=== PATIENT | female | born 1980 | race African-American/Black ===

== ENCOUNTER 2016-08-15 11:58 | Inpatient (IN) | payer OTHER ==
[~2016-08-15] VITALS: Ht 170.2 cm; Wt 121.1 kg
[~2016-08-15 11:58] MED LIST: CIPRO 500MG TA500 MG PO; MASON NATURAL2000 IU PO
--- NOTE | 2016-08-15 13:06 | History & Physical ---
General Information and HPI MD Statement: I have seen and personally examined JIGNESH RITCHIE and documented this H&P. The patient is a 35 year old female at [38] weeks and [3] days gestation who presented with a chief complaint of [ROM CLEAR FLUID]. 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 : 3 Para: 2 Last Menstrual Period: 11/20/2015 Estimated Delivery Date: 09/23/2016 Past raise driller History: none Past Pregnancies Past Pregnancies: 1 Date of Delivery: 02/26/2006 Gestational Age: 40 Length of Labor: 3h Weight: 7# 4oz Type of Delivery: vaginal Anesthesia: epidural Place of Delivery: [facility] Complications: none Past Pregnancies: 2 Date of Delivery: 06/16/2016 Gestational Age: 39 Length of Labor: 6h Weight: 7# 1 oz Type of Delivery: vaginal Anesthesia: epidural Place of Delivery: [facility] Complications: none Surgical History Pertinent Surgical History: none Past Family/Social History Psychosocial History Smoking Status: Never Smoked Review of Systems Review of Systems Constitutional: Reports: no symptoms. Denies: chills, fever. EENTM: Denies: blurred vision, double vision, visual changes. Cardiovascular: Denies: chest pain, edema. Respiratory: Denies: cough, short of breath. GI: Denies: diarrhea, nausea, vomiting. Neurological/Psychological: Denies: anxiety, depressed. Exam & Diagnostic Data Last 24 Hrs of Vital Signs/I&O vss Intake & Output 08/15 1600 02/02 0800 02/ 0000 Intake Total Output Total Balance Patient 267 lb Weight Obstetric Exam Wgt Gained During : 15# Pelvimetry: OK Dilation (cm): 1 Effacement (%): 50 Station: -3 Membranes: SROM Fluid: clear Fundal Height (cm): 40 Multiple Gestation? No Contractions: NO #1 - FHR Baseline: 144 Category: 1 Estimated Weight: 3800G Presentation: BREECH Patient for Induction? No Physical Exam General Appearance Alert, Oriented X3, Cooperative, No Acute Distress Skin No Rashes HEENT Atraumatic Neck Supple Cardiovascular Regular Rate Lungs Clear to Auscultation Abdomen Normal Bowel Sounds, Soft, No Tenderness Neurological Normal Gait, Normal Speech Extremities No Clubbing Labs Blood Type & Rh: A pos Antibody Screen: neg Hct/Hgb & Platelets #1: 39.2/12.2/340 Hct/Hgb & Platelets #2: 33.9/10.3/276 Rubella: imm VDRL #1: nr VDRL #2: nr HbsAg: nrg HIV #1: nr HIV #2 nr 1 Hr P Group B Strep: neg Initial Ultrasound: 01/16/2016 Anatomy Ultrasound: 04/08/2016 normal Ultrasound for EFW: none Genetic Testing: Materni T21 normal MSAFP declined Last 24 Hrs of Labs/José Miguel: Laboratory Tests 08/15/16 1230: CBC w Diff Pending, WBC Pending, RBC Pending, Hgb Pending, Hct Pending, MCV Pending, MCH Pending, RDW Pending, Plt Count Pending, MPV Pending, PUBS MCHC Pending 08/15/16 1205: Urinalysis LIGHT H, Urine Color YEL, Urine Clarity HAZY H, Urine pH 6.0, Ur Specific [place] >= 1.030, Urine Protein TRACE H, Urine Ketones NEG, Urine Nitrite NEG, Urine Bilirubin NEG, Urine Urobilinogen 0.2, Ur Leukocyte Esterase NEG, Ur Microscopic SEDIMENT EXAMINED, Urine RBC 3-5, Urine WBC 1-3 H, Ur Epithelial Cells MOD H, Urine Mucus RARE, Urine Hemoglobin TRACE-INTACT, Urine Glucose NEG Microbiology 08/15 1229 URINE ROUT: Urine Culture - COLB Assessment/Plan Assessment/Plan: Obesity BMI 38 AMA age 35 undesired fertility breech presentation plan primary C/S with tubal ligation As Ranked By This Provider Problem List: 1. Core Measures/Miscellaneous Venous Thromboembolism VTE Risk Factors: Obesity, / VTE Contraindications: No Contraindications VTE Prophylaxis Ordered Inpt: Early Ambulation VTE Diagnosis: Yes Beta Dana Is Beta Dana a Home Med? No Antibiotics Is Patient on Antibiotics? Yes Attending MD Review Statement Attending Statement Attending MD Statement: examined this patient, discussed with family, discussed w/nursing
[2016-08-15 13:15] LABS: ABSOLUTE BASOPHIL COUNT 0 /CUMM (0.0-0.2); ABSOLUTE EOSINOPHIL COUNT 0.1 /CUMM (0.0-0.7); ABSOLUTE GRANULOCYTE CT 8.7 /CUMM (1.4-6.5); ABSOLUTE LYMPH COUNT 1.3 /CUMM (1.2-3.4); ABSOLUTE MONOCYTE COUNT 0.6 /CUMM (0.10-0.60); BASOPHIL % 0.4 % (0.0-2.0); EOSINOPHIL % 1.1 % (0-5); GRANULOCYTE % 80.9 % (42.2-75.2); HEMATOCRIT 35.7 % (37-47); MEAN CORPUSCULAR HGB 28.6 PG (27.0-31.0); MEAN CORPUSCULAR HGB CONC 33.3 G/DL (33.0-37.0); MEAN PLATELET VOLUME 8.6 FL (7.4-10.4); PLATELET COUNT 242 /CUMM (130-400); RBC DISTRIBUTION WIDTH 14.9 % (11.5-14.5); RED BLOOD CELL CT 4.15 /CUMM (4.20-5.40); WHITE BLOOD CELL COUNT 10.7 /CUMM (4.8-10.8)
--- NOTE | 2016-08-15 15:17 | Operative Report ---
Operative/Inv Procedure Report Surgery Date: 08/15/16 Name of Procedure: Primary low transverse section Pre-Operative Diagnosis: Breech presentation ruptured membranes Post-Operative Diagnosis: Adenomyosis of uterus Estimated Blood Loss: 500 Surgeon/Waitstaff Captain: RAIN DE,VI TRUONG MD, ELIZABETH Anesthesia: general endotracheal tube Monitors: fhr 160 bpm Specimens: placenta Condition: good Operative/Procedure Note Note: The patient was placed in the left lateral tilt position Ram catheter was placed and heart rate was noted to be 160 bpm pt was draped and preped in the usual sterile fashon General endotrachial anasthesia was induced A Pfannenstiel incision was made in the skin and carried down sharply to the fascia hemostasis was achieved with electrocautery. The Fascia was incised in the midline sharply and the incision was carried out laterally sharply. The fascia was divided from the underlying rectus muscles in the superior and inferior direction sharply. The rectus muscle bundles were divided in the midline sharply. The uterus was noted to be rotated to the left with a large round mass of adenomyosis/leiomyoma noted in the anterior fundal region A bladder flap was created on the lower uterine segment. The lower uterine segment was entered in the midline sharply and the incision was carried out laterally bluntly. was delivered through clear amnionic fluid bouble footling breech atraumatically cord was doubly clamped and cut and the infant was handed to the pediatric attendant. The placenta was manually extracted and the interior of the uterus was wiped clean with wet laps. The uterus was externalized. The uterine incision was closed in 2 layers the first a running locking stitch the second an imbricating over the first 0 Polysorb sutures were used after checking for hemostasis the uterus was returned to its normal anatomic position the abdominal/perineal cavity was irrigated copiously once again the uterus was checked for hemostasis there was one small vessel coursing over the leiomyoma that was bleeding hemostasis was achieved with a figure of eight stitch while the other vesseles coursing over the leiomyoma were hemostatic surgicele was plased just as a precaution the tubal ligation was not done secondary to the distorted uterine anatomy as the leiomyoma/adenomyosis was involving the right broat ligament hemostasis was now judged to be excellent. The subfascial planes were checked for hemostasis which was judged to be excellent. Fascia was then closed with 2 simple running sutures overlapping in the midline. Subcuticular tissues were irrigated copiously and hemostasis was achieved with electrocautery. A subcuticular Aury's fascia which was placed in a simple running fashion of 2-0 Polysorb. The skin was closed with santiago. Her uterus was expressed of a small amount of blood. The only drain left at the end of the procedure was a Ram catheter.
[2016-08-16 07:59] LABS: ABSOLUTE BASOPHIL COUNT 0 /CUMM (0.0-0.2); ABSOLUTE EOSINOPHIL COUNT 0.1 /CUMM (0.0-0.7); ABSOLUTE MONOCYTE COUNT 0.6 /CUMM (0.10-0.60); EOSINOPHIL % 0.5 % (0-5); RBC DISTRIBUTION WIDTH 14.9 % (11.5-14.5)
[2016-08-16 08:24] LABS: ABSOLUTE GRANULOCYTE CT 13.2 /CUMM (1.4-6.5); ABSOLUTE LYMPH COUNT 1.1 /CUMM (1.2-3.4); BASOPHIL % 0.1 % (0.0-2.0); MEAN CORPUSCULAR HGB 28.7 PG (27.0-31.0); MEAN CORPUSCULAR HGB CONC 33.5 G/DL (33.0-37.0); MEAN CORPUSCULAR VOLUME 85.5 FL (81.0-99.0); MEAN PLATELET VOLUME 8.6 FL (7.4-10.4); PLATELET COUNT 188 /CUMM (130-400); RED BLOOD CELL CT 3.43 /CUMM (4.20-5.40)
[2016-08-16 08:33] LABS: HEMATOCRIT 29.3 % (37-47)
[2016-08-16 08:52] LABS: GRANULOCYTE % 87.9 % (42.2-75.2)
--- NOTE | 2016-08-16 09:50 | PN- OBGYN ---
Surgical Brief Attending Note Brief Attending Note: POD#1 pt is sitting in chair, c/o incisional pain, tolerate diet, melgoza is d/c'd am, not void yet, flatus(-). PE: VSS CV RRR Lungs CTA B/L Abdomen: soft, mild tender at incision site. uterus firm, fundus below umbilicus, incision staple in place, D/C/I, lochia mild ext: DCT (-) A/P: 35yo, s/p PLTCS for breech, POD#1 1. encourage ambulation and . 2. pain amangement as needed 3. void trial 4.RT PP care
--- NOTE | 2016-08-17 10:01 | PN- OBGYN ---
Surgical Brief Attending Note Brief Attending Note: 35yo, c/o urinary frequency, otherwise doing well, tolerate diet, void without difficulties, flatus (-). PE: VSS CV RRR lungs CTA B/L Abdomen: soft, not distended, nontender, BS (+), uterus firm, fundus below umbilicus, incision staple in palce, D/C/I, lochia mild Ext: DCT (-) A/P: 35yo, s/p PLTCS for breech, POD #2 1. will send urine culture . 2. encourage ambulation, give simethicon for helping pass bertha 3. pain management as needed 4. consult on circumcision for the baby, R/B/A of circumcision d/w pt, she understand. all questions ans wered, informed consnet obtained. 5. RT PP care
[2016-08-18] MEDS ORDERED: PERCOCET 5-3251 EACH PO (09:19)
[2016-08-18] MEDS ORDERED: IBUPROFEN800 M1 PO (09:19)
--- NOTE | 2016-08-18 09:36 | PN- OBGYN ---
Surgical Brief Attending Note Brief Attending Note: D#3 pt is , c/o feels breast engorged and a little pain ans warm. denies any abdominal pain, tolerate diet, voidw without difficulties, flatus (+) . PE: T 99.7, VSS Cv RRR Lungs CTA B/L Abdomen: soft, nentender, uterus firm, fundus below umbilicus. incision staple in place, D/C/I, lochia mild Ext: DCT (-) A/P: 35yo, s/p PLTCS for breech. POD #3 1. breast care d/w [pt in detail, she understand. 2. pain management as needed 3. will d/c home, f/u in office in 2 wks and 6 wks. precautions given, she understand
--- NOTE | 2016-09-10 10:30 | Surgical Discharge Summary ---
Visit Information Visit Dates Admission Date: 08/15/16 Discharge Date: 08/18/16 History of Present Illness Chief Complaint: ruptured membrains Surgical History Pertinent Surgical History: none Psychosocial History What is Your Primary Language? Uzbek Review of Systems: Patient denies nausea, vomiting, diarrhea, constipation, fevers, or chills. Hospital Course Course Attending Physician: RAIN DE,VI Perez Primary Care Physician: SHELBIE MURCIA MD Hospital Course: The patient was admitted to the [facility] with ruptured membrains and a foot in the vagina she was taken for an emergency section. She was taken to the operating room and after the induction of anesthesia he was prepped and draped in the usual sterile fashion procedure was undertaken without complications there was a large area of adenomyosis just superior to the lower uterine segment Healing was good and postoperative course was unremarkable. By postoperative day #1 Ram catheter was discontinued and the patient was ambulated she was started on a regular diet. By postoperative day #2 intra venous infusion was discontinued as the patient was tolerating a regular diet. By postoperative day #3 postoperative CBC was stable therefore the patient was discharged home. Allergies: Coded Allergies: minocycline (Severe, HIVES, DIFFICULTY BREATHING 08/15/16) Disposition Summary Disposition Principal Diagnosis: Primary low transverse section Additional Diagnosis: Adenomyosis Discharge Disposition: home or self care Discharge Instructions General Discharge Information Code Status: Full Code Patient's Diet: Regular Patient's Activity: nO heavy lifting call immediately for any fevers chills abdominal pain or leaking from the wound Follow-Up Instructions/Appts: All of the office in 1 week Medications at Discharge Discharge Medications: Stop taking the following medications: Ciprofloxacin (Cipro) 500 MG TABLET ORAL TWICE DAILY Qty = 6 Continue taking these medications: CHOLECALCIFEROL (VITAMIN D3) (Vitamin D) 2,000 UNIT CAPSULE 1 Capsule ORAL DAILY Start taking the following new medications: Ibuprofen (Ibuprofen) 800 MG TABLET 800 Milligram ORAL EVERY SIX HOURS NEEDED as needed for UTERINE CRAMPING Qty = 30 No Refills Comments: Last Taken: Time:81408/18/16 Oxycodone HCl/Acetaminophen (Percocet 5-325 MG Tablet) 5 MG-325 MG TABLET 2 Tablet ORAL EVERY 4 HOURS NEEDED as needed for PAIN SCALE 7-10 (SEVERE) Qty = 30 No Refills Comments: Last Taken: Time:81408/18/16 Attending MD Review Statement Attending Statement Attending MD Statement: examined this patient, discussed with family, discussed w/nursing
== END 2016-08-18 10:19 | DRG 766 ==
LOC: CBCO 11:58 → GNO 12:21
PROVIDERS: ADMIT Obstetrics & Gynecology
PROC: 10D00Z1 Extraction of Products of Conception, Low, Open Approach (ICD-10-PCS; principal; 2016-08-15)
DX: O32.1XX0 Maternal care for breech presentation, not applicable or unspecified (principal); N80.0 Endometriosis of uterus; Z3A.38 38 weeks gestation of pregnancy; Z37.0 Single live birth
CPT/HCPCS: 87070; 87075; 87205; GNOS; 81001; 84112; 87071; 87086; 88307; C9399; J0131; J0690; J1170; J2210; J3490; J7120